=== PATIENT | male | born 1960 | race Caucasian/White ===

== ENCOUNTER 2017-10-12 22:53 | Inpatient (IN) | payer OTHER ==
[2017-10-12] MEDS ORDERED: VANCOMYCIN IV PER PHARMACY 1 EACH MISC MISCELLANE PRN (23:35)
[2017-10-12] MEDS ORDERED: cefTRIAXone IN SWFI 2,000 MG/20 ML SYRINGE IVP STA (23:35)
[2017-10-12] MEDS ORDERED: SODIUM CHLORIDE 0.9% 1,000 ML IV STA (23:35)
--- NOTE | 2017-10-12 23:55 | ED ---
General Adult HPI - General Chief complaint: Extremity Problem,Nontraumatic Stated complaint: Leg Swelling, toe injury Time Seen by Provider: 10/12/17 23:19 Source: patient, family, RN notes reviewed, old records reviewed Mode of arrival: wheelchair Limitations: no limitations - History of Present Illness Initial comments: This is a 48-year-old male to the ER for evaluation of pain. Significant right foot pain right great toe pain with ulcer nonhealing. Drainage. Patient is increased edema swelling and erythema of right lower extremity, fever and chills. Patient's strong history of peripheral arterial disease. No prior amputations. Patient noticed pain symptoms worsening today - Related Data Home Medications Medication Instructions Recorded Confirmed Furosemide [Lasix] 40 mg PO DAILY 02/05/16 10/12/17 Multivitamins, Thera [Multivitamin 1 tab PO DAILY 02/05/16 10/12/17 (formulary)] Atorvastatin [Lipitor] 10 mg PO DAILY 02/19/16 10/12/17 Clopidogrel [Plavix] 75 mg PO DAILY 02/19/16 10/12/17 Cyanocobalamin [Vitamin B-12] 500 mcg PO DAILY 02/19/16 10/12/17 Thiamine [Vitamin B-1] 100 mg PO DAILY 02/19/16 10/12/17 Albuterol Sulfate [Proair Hfa] 2 puff INHALATION RT-Q6H PRN 10/12/17 10/12/17 Aspirin [Adult Low Dose Aspirin EC] 81 mg PO DAILY 10/12/17 10/12/17 Carvedilol [Coreg] 6.25 mg PO BID 10/12/17 10/12/17 Ranitidine HCl 300 mg PO DAILY 10/12/17 10/12/17 Sulfamethox-Tmp 800-160Mg [Bactrim 1 tab PO DAILY 10/12/17 10/12/17 DS 800-160 mg] Previous Rx's Medication Instructions Recorded Nitroglycerin Sl Tabs [Nitrostat] 0.4 mg SUBLINGUAL Q5M PRN #20 tab 02/19/16 Allergies Allergy/AdvReac Type Severity Reaction Status Date / Time morphine Allergy Rash/Hives Verified 10/12/17 23:33 Review of Systems ROS Statement: Those systems with pertinent positive or pertinent negative responses have been documented in the HPI. ROS Other: All systems not noted in ROS Statement are negative. Past Medical History Past Medical History: Chest Pain / Angina, Heart Failure, Hyperlipidemia, Hypertension Additional Past Medical History / Comment(s): Pancreatitis History of Any Multi-Drug Resistant Organisms: None Reported Past Surgical History: Orthopedic Surgery Additional Past Surgical History / Comment(s): 4 stents placed, Rt shoulder Past Anesthesia/Blood Transfusion Reactions: No Reported Reaction Past Psychological History: Depression Smoking Status: Current every day smoker Past Alcohol Use History: None Reported Past Drug Use History: Opiates General Exam - General Exam Comments Initial Comments: Right lower extremity is significantly swollen, edematous, erythematous, warm into foot, pedal edema with right great toe ulcer drainage Limitations: no limitations General appearance: alert, in no apparent distress Head exam: Present: atraumatic, normocephalic, normal inspection Eye exam: Present: normal appearance, PERRL, EOMI. Absent: scleral icterus, conjunctival injection, periorbital swelling ENT exam: Present: normal exam, mucous membranes moist Neck exam: Present: normal inspection. Absent: tenderness, meningismus, lymphadenopathy Respiratory exam: Present: normal lung sounds bilaterally. Absent: respiratory distress, wheezes, rales, rhonchi, stridor Cardiovascular Exam: Present: regular rate, normal rhythm, normal heart sounds. Absent: systolic murmur, diastolic murmur, rubs, gallop, clicks GI/Abdominal exam: Present: soft, normal bowel sounds. Absent: distended, tenderness, guarding, rebound, rigid Extremities exam: Present: normal inspection, full ROM, normal capillary refill. Absent: tenderness, pedal edema, joint swelling, calf tenderness Back exam: Present: normal inspection Neurological exam: Present: alert, oriented X3, CN II-XII intact Psychiatric exam: Present: normal affect, normal mood Skin exam: Present: warm, dry, intact, normal color. Absent: rash Course Vital Signs 10/12/17 23:09 Temperature 98.6 F Pulse Rate 75 Respiratory 20 Rate Blood Pressure 126/85 O2 Sat by Pulse 99 Oximetry Medical Decision Making - Medical Decision Making 56 male the ER for evaluation, patient's inferiorly for evaluation regards to right foot pain right leg pain and swelling. Patient does have significant cellulitis of right lower extremity with significant pedal edema and ulcer of right great toe will admit for IV antibiotics and will control - Radiology Data Radiology results: report reviewed (X-ray right foot negative), image reviewed Disposition Clinical Impression: Neuropathy, Foot pain, Cellulitis of right lower extremity, Ulcer of right great toe due to diabetes mellitus Disposition: ADMITTED IP TO THIS HOSP Condition: Fair Is patient prescribed a controlled substance at d/c from ED?: No Referrals: Nonstaff,Physician [Primary Care Provider] - 1-2 days
[2017-10-13] MEDS ORDERED: VANCOMYCIN 1,250 MG in SODIUM CHLORIDE 0.9% 250 ML IVPB ONE ×2
[2017-10-13 00:26] LABS: Basophils % (A) 0 %; Eosinophils # (A) 0.2 k/uL (0-0.7); Eosinophils % (A) 2 %; HCT 31.4 % (39.0-53.0); HGB 9.9 gm/dL (13.0-17.5); Lymphocytes # (A) 2.6 k/uL (1.0-4.8); Lymphocytes % (A) 27 %; MCHC 31.6 g/dL (31.0-37.0); MCV 94.7 fL (80.0-100.0); Mean Platelet Volume 7.3; Monocytes # (A) 0.6 k/uL (0-1.0); Monocytes % (A) 6 %; Neutrophils # (A) 6.1 k/uL (1.3-7.7); Neutrophils % (A) 62 %; Platelet Count 158 k/uL (150-450); RBC 3.31 m/uL (4.30-5.90); RDW 14.3 % (11.5-15.5); WBC 9.7 k/uL (3.8-10.6)
[2017-10-13 00:30] LABS: Albumin 3.3 g/dL (3.5-5.0); Calcium 9.1 mg/dL (8.4-10.2); Magnesium 1.2 mg/dL (1.6-2.3); Phosphorus 5.2 mg/dL (2.5-4.5); Total Bilirubin 0.2 mg/dL (0.2-1.3)
--- NOTE | 2017-10-13 00:50 | XR ---
EXAMINATION TYPE: XR foot complete RT DATE OF EXAM: 10/13/2017 COMPARISON: 02/05/2016 HISTORY: Swelling TECHNIQUE: 3 views FINDINGS: The metatarsals are intact. I see no fracture nor dislocation. There is some flexion deform ity at the IP joint of the big toe. There are no erosions. IMPRESSION: No acute abnormality of the right foot.
[2017-10-13 00:52] LABS: Appearance,Urine Clear (Clear); Bilirubin,Urine Negative (Negative); Blood,Urine Negative (Negative); Color,Urine Light Yellow; Glucose,Urine (UA) Negative (Negative); Ketones,Urine Negative (Negative); Leukocyte Esterase,Urine Negative (Negative); Nitrite,Urine Negative (Negative); Protein,Urine Negative (Negative); Urobilinogen,Urine <2.0 mg/dL (<2.0)
[2017-10-13 00:53] LABS: Partial Thromboplastin Time 24.7 sec (22.0-30.0); Prothrombin Time 10.1 sec (9.0-12.0)
[2017-10-13 03:36] VITALS: BMI 19.0
[2017-10-13] MEDS: ENOXAPARIN 40 MG/0.4 ML SYRINGE SQ SCH (08:11)
[2017-10-13] MEDS: VANCOMYCIN 1,250 MG in SODIUM CHLORIDE 0.9% 250 ML IVPB SCH (13:04)
[2017-10-13] MEDS: METHADONE 10 MG TAB PO SCH (13:04)
[2017-10-13] MEDS ORDERED: NITROGLYCERIN SL TABS 0.4 MG TAB SUBLINGUAL PRN (15:12)
[2017-10-13] MEDS ORDERED: ALBUTEROL NEBULIZED 2.5 MG/3 ML INHALATION PRN (15:12)
--- NOTE | 2017-10-13 15:15 | P.HPIM ---
History of Present Illness This is a pleasant 56 years old male with past medical history of CHF, hyperlipidemia, hypertension, pancreatitis, chest pain, CAD, status post stent placement, opiate addiction who was at [facility] for alcohol abuse treatment. This time he presents with leg swelling and right toe pain and discharge as per patient this leg was swelling on the right side yesterday but is down today, is also complaining of from pain tenderness and discharge from his right toe over 2 days. Patient denies fever, no chest pain no dyspnea, no orthopnea, no paroxysmal nocturnal dyspnea, in urine or bowel habits Review of Systems REVIEW OF SYSTEMS: CONSTITUTIONAL: No fever, no malaise, no fatigue. HEENT: No recent visual problems or hearing problems. Denied any sore throat. CARDIOVASCULAR: No orthopnea, PND, no palpitations, no syncope. PULMONARY: No shortness of breath, no cough, no hemoptysis. GASTROINTESTINAL: No diarrhea, no nausea, no vomiting, no abdominal pain. Normoactive bowel sounds. NEUROLOGICAL: No headaches, no weakness, no numbness. HEMATOLOGICAL: Denies any bleeding or petechiae. GENITOURINARY: Denies any burning micturition, frequency, or urgency. MUSCULOSKELETAL/RHEUMATOLOGICAL: Denies any joint pain, swelling, or any muscle pain. ENDOCRINE: Denies any polyuria or polydipsia. Past Medical History Past Medical History: Chest Pain / Angina, Heart Failure, Hyperlipidemia, Hypertension Additional Past Medical History / Comment(s): Pancreatitis History of Any Multi-Drug Resistant Organisms: None Reported Past Surgical History: Orthopedic Surgery Additional Past Surgical History / Comment(s): 4 stents placed heart, Rt shoulder Past Anesthesia/Blood Transfusion Reactions: No Reported Reaction Past Psychological History: Depression Smoking Status: Current every day smoker Past Alcohol Use History: None Reported Additional Past Alcohol Use History / Comment(s): At [facility] for ETOH rehab. Past Drug Use History: Opiates Additional Drug Use History / Comment(s): Currently at [facility] rehab. - Past Family History Mother Family Medical History: No Reported History Father Additional Family Medical History / Comment(s): Heart disease and lukemina Medications and Allergies Home Medications Medication Instructions Recorded Confirmed Type Furosemide [Lasix] 40 mg PO DAILY 02/05/16 10/12/17 History Multivitamins, Thera [Multivitamin 1 tab PO DAILY 02/05/16 10/12/17 History (formulary)] Atorvastatin [Lipitor] 10 mg PO DAILY 02/19/16 10/12/17 History Clopidogrel [Plavix] 75 mg PO DAILY 02/19/16 10/12/17 History Cyanocobalamin [Vitamin B-12] 500 mcg PO DAILY 02/19/16 10/12/17 History Nitroglycerin Sl Tabs [Nitrostat] 0.4 mg SUBLINGUAL Q5M PRN #20 tab 02/19/16 Rx Thiamine [Vitamin B-1] 100 mg PO DAILY 02/19/16 10/12/17 History Albuterol Sulfate [Proair Hfa] 2 puff INHALATION RT-Q6H PRN 10/12/17 10/12/17 History Aspirin [Adult Low Dose Aspirin EC] 81 mg PO DAILY 10/12/17 10/12/17 History Carvedilol [Coreg] 6.25 mg PO BID 10/12/17 10/12/17 History Ranitidine HCl 300 mg PO DAILY 10/12/17 10/12/17 History Sulfamethox-Tmp 800-160Mg [Bactrim 1 tab PO DAILY 10/12/17 10/12/17 History DS 800-160 mg] Methadone [Dolophine] 140 mg PO DAILY 10/13/17 10/13/17 History Allergies Allergy/AdvReac Type Severity Reaction Status Date / Time morphine Allergy Rash/Hives Verified 10/12/17 23:33 Physical Exam Vitals: Vital Signs Temp Pulse Pulse Resp BP BP BP 10/13/17 13:30 98.5 F 91 15 153/91 10/13/17 08:10 98.6 F 76 20 146/84 10/13/17 03:16 97.6 F 81 20 166/89 10/13/17 02:51 98.5 F 84 16 160/70 10/13/17 02:00 98.4 F 77 16 156/86 10/13/17 01:16 20 10/13/17 01:05 80 18 160/78 10/12/17 23:09 98.6 F 75 20 126/85 Pulse Ox 10/13/17 13:30 99 10/13/17 08:10 97 10/13/17 03:16 96 10/13/17 02:51 98 10/13/17 02:00 94 L 10/13/17 01:16 10/13/17 01:05 97 10/12/17 23:09 99 Intake and Output 10/12/17 10/13/17 10/13/17 22:59 06:59 14:59 Intake Total 660 Output Total 1050 300 Balance -390 -300 Intake: Intake, IV Titration 300 Amount Sodium Chloride 0.9% 1, 300 000 ml @ 100 mls/hr IV . Q10H STA Rx#:[id number] Oral 360 Output: Urine 1050 300 Other: Weight 63.503 kg 63.503 kg GENERAL: The patient is alert and oriented x3, not in any acute distress. Well developed, well nourished. HEENT: Pupils are round and equally reacting to light. EOMI. No scleral icterus. No conjunctival pallor. Normocephalic, atraumatic. No pharyngeal erythema. No thyromegaly. CARDIOVASCULAR: S1 and S2 present. No murmurs, rubs, or gallops. PULMONARY: Chest is clear to auscultation, no wheezing or crackles. ABDOMEN: Soft, nontender, nondistended, normoactive bowel sounds. No palpable organomegaly. MUSCULOSKELETAL: No joint swelling or deformity. EXTREMITIES: No cyanosis, clubbing, or pedal edema. -There are some apparent chronic changes on the big toe NEUROLOGICAL: Gross neurological examination did not reveal any focal deficits. SKIN: No rashes. Results CBC & Chem 7: 10/13/17 00:11 10/13/17 00:11 Labs: Abnormal Lab Results - Last 24 Hours (Table) 10/13/17 10/13/17 Range/Units 00:11 00:11 RBC 3.31 L (4.30-5.90) m/uL Hgb 9.9 L (13.0-17.5) gm/dL Hct 31.4 L (39.0-53.0) % Chloride 94 L (98-107) mmol/L Carbon Dioxide 35 H (22-30) mmol/L BUN 24 H (9-20) mg/dL Phosphorus 5.2 H (2.5-4.5) mg/dL Magnesium 1.2 L (1.6-2.3) mg/dL Albumin 3.3 L (3.5-5.0) g/dL Microbiology - Last 24 Hours (Table) 10/13/17 00:43 Urine Culture - Preliminary Urine,Voided Thrombosis Risk Factor Assmnt - Choose All That Apply Each Factor Represents 1 point: Age 41-60 years, Medical pt on bed rest, Swollen legs (current) Other Risk Factors: No Other congenital or acquired thrombophilia - If yes, enter type in comment: No Thrombosis Risk Factor Assessment Total Risk Factor Score: 3 Thrombosis Risk Factor Assessment Level: Moderate Risk Assessment and Plan Plan: -Right foot big toe pain and possible infection, patient is currently on Bactrim. ID consult. We'll check x-ray of the right foods, and venous Doppler to rule out DVT -History of CAD, continue on the Plavix and aspirin -Hypertension continue on Coreg and Lasix -Hyperlipidemia continue with statin
--- NOTE | 2017-10-13 15:34 | XR ---
EXAMINATION TYPE: XR foot complete RT DATE OF EXAM: 10/13/2017 CLINICAL HISTORY: Ulcer on right great toe TECHNIQUE: Frontal, lateral and oblique images of the right foot are obtained. COMPARISON: None. FINDINGS: There is no acute fracture/dislocation evident. Soft tissue ulcerations noted. There is il l-defined bony demineralization of the subungual tuft of the great toe. Early osteomyelitis is diffic ult to exclude. Correlate clinically and with appropriate workup. The joint spaces appear within nor mal limits. IMPRESSION: There is no acute fracture or dislocation. Early osteomyelitis of subungual tuft difficult to exclude . Correlate clinically. ICD 10 NO FRACTURE, INITIAL EVALUATION
--- NOTE | 2017-10-13 16:21 | US ---
EXAMINATION TYPE: US venous doppler duplex LE BI DATE OF EXAM: 10/13/2017 4:05 PM COMPARISON: NONE CLINICAL HISTORY: edema. bilateral leg swelling, CHF, no h/o dvt SIDE PERFORMED: Bilateral TECHNIQUE: The lower extremity deep venous system is examined utilizing real time linear array sonog daksha with graded compression, doppler sonography and color-flow sonography. VESSELS IMAGED: External Iliac Vein (EIV) Common Femoral Vein Deep Femoral Vein Greater Saphenous Vein * Femoral Vein Popliteal Vein Small Saphenous Vein * Proximal Calf Veins (* superficial vessels) Grayscale, color doppler, spectral doppler imaging performed of the deep veins of the lower extremiti es. There is normal flow, compressibility, vascular waveforms. Right Leg: Appears negative for DVT, 5.9cm popiteal fossa complex cyst seem Left Leg: Appears negative for dvt, duplicate mid fv seen IMPRESSION: No evidence for DVT.
[2017-10-13] MEDS: ASPIRIN 81 MG PO SCH (16:45)
[2017-10-13] MEDS: CYANOCOBALAMIN 500 MCG TAB PO SCH (16:46)
[2017-10-13] MEDS: ATORVASTATIN 10 MG TAB PO SCH (16:46)
[2017-10-13] MEDS: CLOPIDOGREL 75 MG TAB PO SCH (16:46)
[2017-10-13] MEDS: FAMOTIDINE 20 MG TAB PO SCH (16:46)
[2017-10-13] MEDS: THIAMINE 100 MG TAB PO SCH (16:47)
[2017-10-13] MEDS: FUROSEMIDE 40 MG TAB PO SCH (16:47)
[2017-10-13] MEDS: MULTIVITAMINS, THERA 1 EACH TAB PO SCH (16:47)
[2017-10-13] MEDS: CARVEDILOL 6.25 MG TAB PO SCH (16:47)
[2017-10-13] MEDS: SODIUM CHLORIDE 0.9% 1,000 ML IV SCH (22:49)
[2017-10-14] MEDS: VANCOMYCIN 1,250 MG in SODIUM CHLORIDE 0.9% 250 ML IVPB SCH ×3 (00:05→23:05)
[2017-10-14] MEDS: ACETAMINOPHEN TAB 325 MG TAB PO PRN ×3 (02:19→20:19)
[2017-10-14 07:13] LABS: Basophils % (A) 0 %; Eosinophils # (A) 0.2 k/uL (0-0.7); Eosinophils % (A) 3 %; HCT 30.4 % (39.0-53.0); HGB 9.7 gm/dL (13.0-17.5); Lymphocytes # (A) 2.1 k/uL (1.0-4.8); Lymphocytes % (A) 29 %; MCH 29.9 pg (25.0-35.0); MCV 93.5 fL (80.0-100.0); Mean Platelet Volume 6.8; Monocytes # (A) 0.5 k/uL (0-1.0); Monocytes % (A) 7 %; Neutrophils # (A) 4.5 k/uL (1.3-7.7); Neutrophils % (A) 60 %; Platelet Count 150 k/uL (150-450); RBC 3.26 m/uL (4.30-5.90); RDW 13.9 % (11.5-15.5); WBC 7.4 k/uL (3.8-10.6)
[2017-10-14 07:23] LABS: Calcium 8.9 mg/dL (8.4-10.2); Potassium 4.2 mmol/L (3.5-5.1)
[2017-10-14] MEDS: ATORVASTATIN 10 MG TAB PO SCH (08:52)
[2017-10-14] MEDS: CYANOCOBALAMIN 500 MCG TAB PO SCH (08:52)
[2017-10-14] MEDS: METHADONE 10 MG TAB PO SCH (08:52)
[2017-10-14] MEDS: ENOXAPARIN 40 MG/0.4 ML SYRINGE SQ SCH (08:52)
[2017-10-14] MEDS: THIAMINE 100 MG TAB PO SCH (08:52)
[2017-10-14] MEDS: FAMOTIDINE 20 MG TAB PO SCH (08:53)
[2017-10-14] MEDS: CLOPIDOGREL 75 MG TAB PO SCH (08:53)
[2017-10-14] MEDS: ASPIRIN 81 MG PO SCH (08:53)
[2017-10-14] MEDS: FUROSEMIDE 40 MG TAB PO SCH (08:53)
[2017-10-14] MEDS: CARVEDILOL 6.25 MG TAB PO SCH ×2 (08:53→17:25)
[2017-10-14] MEDS: MULTIVITAMINS, THERA 1 EACH TAB PO SCH (11:11)
[2017-10-14] MEDS: ERTAPENEM 1 GM in SODIUM CHLORIDE 0.9% 50 ML IVPB SCH (14:27)
[2017-10-14] MEDS: SODIUM CHLORIDE 0.9% 1,000 ML IV SCH (14:27)
--- NOTE | 2017-10-14 15:06 | P.CONS ---
History of Present Illness - Reason for Consult Consult date: 10/14/17 - Chief Complaint ulcer right great toe - History of Present Illness 56-year-old male that has a known history of multiple medical troubles includes diabetes mellitus type 2, pancreatitis and chronic alcoholism and underlying coronary disease requiring a stent. The patient relates that several months ago he developed an ulceration to his right great toe and because of severe coronary artery disease and multiple medical issues he was not deemed a candidate for any interventions at that time. Apparently local wound care only was given. He was told that he may require surgical intervention almost sounding like an amputation to the site which again he was not well enough for. He has had ongoing difficulties with her chronic alcoholism and although he lives in [place] has come to our community to be admitted to [facility] for his alcohol rehab. Apparently the right foot has markedly worsened with some increasing pain and erythema and some drainage as well as a cellulitis and onset of fever. With this he presented to the emergency center and was admitted for the cellulitis and wound to the right great toe. With his difficulty the infectious diseases consultation was requested Review of Systems HEENT:Denies headache or acute visual change. Denies sinus or mouth discomforts. Denies neck stiffness or pain. Denies significant oral cavity pain. Denies difficulty on swallowing. Lungs: Denies significant shortness of breath, cough, sputum production, or hemoptysis. Cardiovascular: Denies significant shortness of breath, chest pain, chest wall pain, orthopnea, dyspnea on exertion, syncope Gastrointestinal:Denies nausea, vomiting, diarrhea, constipation, hematemesis, melena, hematochezia. No no significant change of bowel habit noticed. Musculoskeletal: As per the HPI has pain swelling and ulceration to the right great toe Skin: Ulcer right great toe for months Neuro: Denies headache or visual change. Denies any new onset weakness or difficulty with ambulation. Denies falls or seizures. Psychiatric:Denies anxiety or depression. Endocrine: Denies significant fatigue, denies significant weight loss or weight gain. Past Medical History Past Medical History: Chest Pain / Angina, Heart Failure, Hyperlipidemia, Hypertension Additional Past Medical History / Comment(s): Pancreatitis History of Any Multi-Drug Resistant Organisms: None Reported Past Surgical History: Orthopedic Surgery Additional Past Surgical History / Comment(s): 4 stents placed heart, Rt shoulder Past Anesthesia/Blood Transfusion Reactions: No Reported Reaction Past Psychological History: Depression Smoking Status: Current every day smoker Past Alcohol Use History: None Reported Additional Past Alcohol Use History / Comment(s): At [facility] for ETOH rehab. Single and lives with his sister. Does not work outside of the home no experience. No international travel. Tobacco use is active. No opiate use but is an alcoholic, relates he's now been more than a week since he was actively drinking. Past Drug Use History: Opiates Additional Drug Use History / Comment(s): Currently at [facility]. - Past Family History Mother Family Medical History: No Reported History Father Additional Family Medical History / Comment(s): Heart disease and lukemina Medications and Allergies Home Medications and Allergies Comment(s): Current Medications Acetaminophen (Tylenol Tab) 650 mg PO Q6HR PRN PRN Reason: Fever and/ or Pain Last Admin: 10/14/17 11:08 Dose: 650 mg Albuterol Sulfate (Ventolin Nebulized) 2.5 mg INHALATION RT-Q6H PRN PRN Reason: Shortness Of Breath Aspirin (Aspirin) 81 mg PO DAILY [facility] Last Admin: 10/14/17 08:53 Dose: 81 mg Atorvastatin Calcium (Lipitor) 10 mg PO DAILY [facility] Last Admin: 10/14/17 08:52 Dose: 10 mg Carvedilol (Coreg) 6.25 mg PO AC-BID [facility] Last Admin: 10/14/17 08:53 Dose: 6.25 mg Clopidogrel Bisulfate (Plavix) 75 mg PO DAILY [facility] Last Admin: 10/14/17 08:53 Dose: 75 mg Cyanocobalamin (Vitamin B-12) 500 mcg PO DAILY [facility] Last Admin: 10/14/17 08:52 Dose: 500 mcg Enoxaparin Sodium (Lovenox) 40 mg SQ DAILY [facility] Last Admin: 10/14/17 08:52 Dose: 40 mg Famotidine (Pepcid) 40 mg PO DAILY [facility] Last Admin: 10/14/17 08:53 Dose: 40 mg Furosemide (Lasix) 40 mg PO DAILY [facility] Last Admin: 10/14/17 08:53 Dose: 40 mg Vancomycin HCl 1,250 mg/ (Sodium Chloride) 250 mls @ 125 mls/hr IVPB Q12H [facility] Last Admin: 10/14/17 11:09 Dose: 125 mls/hr Sodium Chloride (Saline 0.9%) 1,000 mls @ 75 mls/hr IV .[id number] [facility] Last Admin: 10/14/17 14:27 Dose: Not Given Ertapenem 1 gm/ Sodium (Chloride) 50 mls @ 100 mls/hr IVPB Q24HR [facility] Last Admin: 10/14/17 14:27 Dose: 100 mls/hr Methadone HCl (Dolophine) 140 mg PO DAILY [facility] Last Admin: 10/14/17 08:52 Dose: 140 mg Miscellaneous Information (Vancomycin Trough Due) 1 each MISCELLANE ONCE ONE Stop: 10/15/17 11:01 Multivitamins (Theragran) 1 each PO DAILY@1200 [facility] Last Admin: 10/14/17 11:11 Dose: 1 each Nitroglycerin (Nitrostat) 0.4 mg SUBLINGUAL Q5M PRN PRN Reason: Chest Pain Thiamine HCl (Vitamin B-1) 100 mg PO DAILY [facility] Last Admin: 10/14/17 08:52 Dose: 100 mg Home Medications Medication Instructions Recorded Confirmed Type Furosemide [Lasix] 40 mg PO DAILY 02/05/16 10/12/17 History Multivitamins, Thera [Multivitamin 1 tab PO DAILY 02/05/16 10/12/17 History (formulary)] Atorvastatin [Lipitor] 10 mg PO DAILY 02/19/16 10/12/17 History Clopidogrel [Plavix] 75 mg PO DAILY 02/19/16 10/12/17 History Cyanocobalamin [Vitamin B-12] 500 mcg PO DAILY 02/19/16 10/12/17 History Nitroglycerin Sl Tabs [Nitrostat] 0.4 mg SUBLINGUAL Q5M PRN #20 tab 02/19/16 Rx Thiamine [Vitamin B-1] 100 mg PO DAILY 02/19/16 10/12/17 History Albuterol Sulfate [Proair Hfa] 2 puff INHALATION RT-Q6H PRN 10/12/17 10/12/17 History Aspirin [Adult Low Dose Aspirin EC] 81 mg PO DAILY 10/12/17 10/12/17 History Carvedilol [Coreg] 6.25 mg PO BID 10/12/17 10/12/17 History Ranitidine HCl 300 mg PO DAILY 10/12/17 10/12/17 History Sulfamethox-Tmp 800-160Mg [Bactrim 1 tab PO DAILY 10/12/17 10/12/17 History DS 800-160 mg] Methadone [Dolophine] 140 mg PO DAILY 10/13/17 10/13/17 History Allergies Allergy/AdvReac Type Severity Reaction Status Date / Time morphine Allergy Rash/Hives Verified 10/12/17 23:33 Physical Exam Vitals: Vital Signs Temp Pulse Resp BP Pulse Ox 10/14/17 14:32 98.0 F 76 16 120/74 97 10/14/17 07:00 97.8 F 76 15 147/87 96 10/14/17 02:20 98.8 F 78 16 147/89 94 L 10/13/17 19:52 97.4 F L 73 16 154/84 96 10/13/17 16:15 98.0 F 85 16 156/93 Intake and Output 10/13/17 10/14/17 10/14/17 22:59 06:59 14:59 Intake Total 2317 1240 Output Total 1810 250 550 Balance 507 990 -550 Intake: Intake, IV Titration 1000 700 Amount Sodium Chloride 0.9% 1, 1000 000 ml @ 100 mls/hr IV . Q10H [facility] Rx#:[id number] Sodium Chloride 0.9% 1, 450 000 ml @ 75 mls/hr IV . [id number] [facility] Rx#:[id number] Vancomycin 1,250 mg In 250 Sodium Chloride 0.9% 250 ml @ 125 mls/hr IVPB Q12H [facility] Rx#:[id number] Oral 1317 540 Output: Urine 1810 250 550 Other: Voiding Method Toilet Toilet Urinal Urinal # Voids 3 1 3 # Bowel Movements 1 # Emeses 0 56-year-old male who looks older than his stated age HEENT: Anicteric conjunctiva are pink and moist nasal mucosa grossly intact without significant lesions, there is no thrush. Dentition is poor Neck: The neck is supple without significant lymphadenopathy or thyromegaly. Lungs: Symmetrical air entry is noted. Expiratory wheezes are scattered but no uriel bronchial sounds are heard no dullness or egophony Heart: Regular rate and rhythm with an audible S1-S2, no S3 no S4. There is no significant murmur click or rub, PMI was nondisplaced. Abdomen: Positive bowel sounds soft and nontender without palpable masses or organomegaly. There was no guarding or rebound. Extremities: The upper extremities have excellent pulses they are symmetric, no significant petechiae or telangiectasia. No splinter hemorrhages were noted. The lower extremities reveal evidence of some trace edema. Left foot is without acute abnormalities except for his oncotic toenails The right foot shows evidence of the deformity to the great toe with evidence of the distal ulceration. There is no expressible purulence at the ulceration which measures at 0.5 x 0.7 x 0.2cm has some granulation at its base Neuro: Awake alert oriented to person place and time. There are no acute new gross focal sensory motor deficits. Results CBC & Chem 7: 10/14/17 06:26 10/14/17 06: Labs: Abnormal Lab Results - Last 24 Hours (Table) 10/14/17 10/14/17 Range/Units : 06: RBC 3.26 L (4.30-5.90) m/uL Hgb 9.7 L (13.0-17.5) gm/dL Hct 30.4 L (39.0-53.0) % Sodium 136 L (137-145) mmol/L Chloride 94 L (98-107) mmol/L Carbon Dioxide 34 H (22-30) mmol/L Microbiology - Last 24 Hours (Table) 10/13/17 00:43 Urine Culture - Final Urine,Voided 10/13/17 00:11 Blood Culture - Preliminary Blood No Growth after 24 hours Laboratory Results WBC 7.4 k/uL (3.8-10.6) 10/14/17: RBC 3.26 m/uL (4.30-5.90) L 10/14/17: Hgb 9.7 gm/dL (13.0-17.5) L 10/14/17: Hct 30.4 % (39.0-53.0) L 10/14/17: MCV 93.5 fL (80.0-100.0) 10/14/17: MCH 29.9 pg (25.0-35.0) 10/14/17: MCHC 32.0 g/dL (31.0-37.0) 10/14/17 RDW 13.9 % (11.5-15.5) 10/14/17 06:26 Plt Count 150 k/uL (150-450) 10/14/17 06:26 Neutrophils % 60 % 10/14/17 06:26 Lymphocytes % 29 % 10/14/17 06:26 Monocytes % 7 % 10/14/17 06:26 Eosinophils % 3 % 10/14/17 06:26 Basophils % 0 % 10/14/17 06:26 Neutrophils # 4.5 k/uL (1.3-7.7) 10/14/17 06:26 Lymphocytes # 2.1 k/uL (1.0-4.8) 10/14/17 06:26 Monocytes # 0.5 k/uL (0-1.0) 10/14/17 06:26 Eosinophils # 0.2 k/uL (0-0.7) 10/14/17 06:26 Basophils # 0.0 k/uL (0-0.2) 10/14/17 06:26 PT 10.1 sec (9.0-12.0) 10/13/17 00:11 INR 1.0 (<1.2) 10/13/17 00:11 APTT 24.7 sec (22.0-30.0) 10/13/17 00:11 Sodium 136 mmol/L (137-145) L 10/14/17 06:26 Potassium 4.2 mmol/L (3.5-5.1) 10/14/17 06:26 Chloride 94 mmol/L (98-107) L 10/14/17 06:26 Carbon Dioxide 34 mmol/L (22-30) H 10/14/17 06:26 Anion Gap 8 mmol/L 10/14/17 06:26 BUN 20 mg/dL (9-20) 10/14/17 06:26 Creatinine 1.14 mg/dL (0.66-1.25) 10/14/17 06:26 Est GFR (CKD-EPI)AfAm 82 (>60 ml/min/1.73 sqM) 10/14/17 06:26 Est GFR (CKD-EPI)NonAf 71 (>60 ml/min/1.73 sqM) 10/14/17 06:26 Glucose 90 mg/dL (74-99) 10/14/17 06:26 Calcium 8.9 mg/dL (8.4-10.2) 10/14/17 06:26 Phosphorus 5.2 mg/dL (2.5-4.5) H 10/13/17 00:11 Magnesium 1.2 mg/dL (1.6-2.3) L 10/13/17 00:11 Total Bilirubin 0.2 mg/dL (0.2-1.3) 10/13/17 00:11 AST 30 U/L (17-59) 10/13/17 00:11 ALT 32 U/L (21-72) 10/13/17 00:11 Alkaline Phosphatase 89 U/L (38-126) 10/13/17 00:11 Total Protein 7.0 g/dL (6.3-8.2) 10/13/17 00:11 Albumin 3.3 g/dL (3.5-5.0) L 10/13/17 00:11 Urine Color Light Yellow 10/13/17 00:45 Urine Appearance Clear (Clear) 10/13/17 00:45 Urine pH 7.0 (5.0-8.0) 10/13/17 00:45 Ur Specific [place] 1.010 (1.001-1.035) 10/13/17 00:45 Urine Protein Negative (Negative) 10/13/17 00:45 Urine Glucose (UA) Negative (Negative) 10/13/17 00:45 Urine Ketones Negative (Negative) 10/13/17 00:45 Urine Blood Negative (Negative) 10/13/17 00:45 Urine Nitrite Negative (Negative) 10/13/17 00:45 Urine Bilirubin Negative (Negative) 10/13/17 00:45 Urine Urobilinogen <2.0 mg/dL (<2.0) 10/13/17 00:45 Ur Leukocyte Esterase Negative (Negative) 10/13/17 00:45 Microbiology 10/13/17 00:43 Urine,Voided Urine Culture - Final 10/13/17 00:11 Blood Blood Culture - Preliminary No Growth after 24 hours Assessment and Plan (1) Cellulitis of right foot Current Visit: No Status: Acute Code(s): L03.115 - CELLULITIS OF RIGHT LOWER LIMB SNOMED Code(s): 119623151 (2) Chronic ulcer of right great toe with fat layer exposed Narrative/Plan: 56-year-old male with history of multiple medical troubles has a nonhealing ulceration to the right great toe that is likely complication of his peripheral vascular disease, his alcoholism and poor overall status. X-ray of the site was of concern and constantly bone scan has been requested to verify the possibility of underlying osteomyelitis. If I cellulitis is found cultures may further help direct her course of antibiotic therapy. He is an alcoholic and opiate user and may require outpatient intravenous antibiotic therapy. He relates that since he is from the [facility] would likely be cared for in that setting after his discharge from hospital, rather than going back to [facility]. Local wound care with julia has been requested Elevation the foot at rest Would like to have him follow-up in our wound healing center after discharge from going care which may be difficult if he moves out of the community We do well to have some kind of offloading shoe to the right foot which usually is ordered in the outpatient setting. Albumin is low as expected with chronic alcoholism is evidence of moderate protein calorie malnutrition and multivitamin supplements are requested Current Visit: Yes Status: Acute Code(s): L97.512 - NON-PRS CHRONIC ULCER OTH PRT RIGHT FOOT W FAT LAYER EXPOSED SNOMED Code(s): 386638942
--- NOTE | 2017-10-14 17:36 | NM ---
EXAMINATION TYPE: NM bone 3 phase DATE OF EXAM: 10/14/2017 COMPARISON: NONE HISTORY: Triple phase bone scintigraphy was performed following the injection of 22.2 mCi Tc 99m MDP. Immedia te images and 4 hours post injection images acquired. FINDINGS: The flow study shows hyperemia of the right big toe and also in the medial aspect of the left midfoot . Delayed images show persistent increased activity in the right big toe as well as the left midfoot on the medial aspect. Flow study shows generally increased blood flow in the entire right foot compar ed to the left. IMPRESSION: Hyperemia of the right foot compared to the left. This could relate to cellulitis. Delayed increased uptake in the right big toe and left midfoot. The big toe uptake is consistent with osteomyelitis. Up take in the left midfoot is typical of osteoarthritis or fracture.
--- NOTE | 2017-10-14 18:48 | P.PN ---
Subjective This is a pleasant 56 years old male with past medical history of CHF, hyperlipidemia, hypertension, pancreatitis, chest pain, CAD, status post stent placement, opiate addiction who was at [facility] for alcohol abuse treatment. This time he presents with leg swelling and right toe pain and discharge as per patient this leg was swelling on the right side yesterday but is down today, is also complaining of from pain tenderness and discharge from his right toe over 2 days. Patient denies fever, no chest pain no dyspnea, no orthopnea, no paroxysmal nocturnal dyspnea, in urine or bowel habits On 10/14/2017 Patient is still complaining from pain and swelling of his right toe, patient denies chest pain no fever, with varus of Vitas looks stable. Labs shows no leukocytosis. Sodium 136, potassium 4.2. Creatinine normal at 1.14, patient still on vancomycin. Patient is on IV fluids for dehydration Objective - Vital Signs Vital signs: Vital Signs Temp 98.0 F 10/14/17 14:32 Pulse 79 10/14/17 17:24 Resp 16 10/14/17 14:32 BP 134/79 10/14/17 17:24 Pulse Ox 97 10/14/17 14:32 Intake & Output 10/13/17 10/14/17 10/14/17 18:59 06:59 18:59 Intake Total 1087 3320 237 Output Total 900 2060 550 Balance 187 1260 -313 Weight 63.503 kg Intake: Intake, IV Titration 250 1700 Amount Sodium Chloride 0.9% 1, 1000 000 ml @ 100 mls/hr IV . Q10H [facility] Rx#:[id number] Sodium Chloride 0.9% 1, 450 000 ml @ 75 mls/hr IV . [id number] [facility] Rx#:[id number] Vancomycin 1,250 mg In 250 250 Sodium Chloride 0.9% 250 ml @ 125 mls/hr IVPB Q12H [facility] Rx#:[id number] Oral 837 1620 237 Output: Urine 900 2060 550 Other: Voiding Method Toilet Urinal Urinal # Voids 1 3 # Bowel Movements 1 # Emeses 0 - Exam GENERAL: The patient is alert and oriented x3, not in any acute distress. Well developed, well nourished. - HEENT: Pupils are round and equally reacting to light. EOMI. No scleral icterus. No conjunctival pallor. Normocephalic, atraumatic. No pharyngeal erythema. No thyromegaly. Dry mucous membranes CARDIOVASCULAR: S1 and S2 present. No murmurs, rubs, or gallops. PULMONARY: Chest is clear to auscultation, no wheezing or crackles. ABDOMEN: Soft, nontender, nondistended, normoactive bowel sounds. No palpable organomegaly. MUSCULOSKELETAL: No joint swelling or deformity. EXTREMITIES: No cyanosis, clubbing, or pedal edema. -There are some apparent chronic changes on the big toe NEUROLOGICAL: Gross neurological examination did not reveal any focal deficits. SKIN: No rashes. - Labs CBC & Chem 7: 10/14/17 06:26 10/14/17 06:26 Labs: Abnormal Lab Results - Last 24 Hours (Table) 10/14/17 10/14/17 Range/Units 06:26 06:26 RBC 3.26 L (4.30-5.90) m/uL Hgb 9.7 L (13.0-17.5) gm/dL Hct 30.4 L (39.0-53.0) % Sodium 136 L (137-145) mmol/L Chloride 94 L (98-107) mmol/L Carbon Dioxide 34 H (22-30) mmol/L Microbiology - Last 24 Hours (Table) 10/13/17 00:43 Urine Culture - Final Urine,Voided 10/13/17 00:11 Blood Culture - Preliminary Blood No Growth after 24 hours Assessment and Plan Plan: -Right foot big toe pain and possible infection, patient is currently on Bactrim. ID consult is appreciated and the recommendation are noted. check x-ray of the right foot: Possible early OM, and venous Doppler was negative for DVT, bone scan is ordered and is pending. Continue with vancomycin and IV fluids -Complex right popliteal cyst, follow-up as an outpatient -History of CAD, continue on the Plavix and aspirin -Hypertension continue on Coreg and Lasix -Hyperlipidemia continue with statin DVT prophylaxis of Lovenox GI prophylaxis on Pepcid Prognosis is guarded
[2017-10-15] MEDS: SODIUM CHLORIDE 0.9% 1,000 ML IV SCH ×2 (04:08→15:58)
[2017-10-15 07:20] LABS: Basophils % (A) 1 %; Eosinophils # (A) 0.2 k/uL (0-0.7); Eosinophils % (A) 3 %; HCT 29.2 % (39.0-53.0); HGB 9.5 gm/dL (13.0-17.5); Lymphocytes # (A) 2.2 k/uL (1.0-4.8); Lymphocytes % (A) 33 %; MCH 30.6 pg (25.0-35.0); MCHC 32.5 g/dL (31.0-37.0); MCV 94.1 fL (80.0-100.0); Mean Platelet Volume 6.7; Monocytes # (A) 0.5 k/uL (0-1.0); Monocytes % (A) 7 %; Neutrophils # (A) 3.5 k/uL (1.3-7.7); Neutrophils % (A) 54 %; Platelet Count 165 k/uL (150-450); RBC 3.11 m/uL (4.30-5.90); RDW 14.1 % (11.5-15.5); WBC 6.5 k/uL (3.8-10.6)
[2017-10-15 07:47] LABS: Potassium 4.5 mmol/L (3.5-5.1)
[2017-10-15] MEDS: ERTAPENEM 1 GM in SODIUM CHLORIDE 0.9% 50 ML IVPB SCH (09:19)
[2017-10-15] MEDS: ENOXAPARIN 40 MG/0.4 ML SYRINGE SQ SCH (09:20)
[2017-10-15] MEDS: CYANOCOBALAMIN 500 MCG TAB PO SCH (09:20)
[2017-10-15] MEDS: ATORVASTATIN 10 MG TAB PO SCH (09:20)
[2017-10-15] MEDS: FAMOTIDINE 20 MG TAB PO SCH (09:20)
[2017-10-15] MEDS: THIAMINE 100 MG TAB PO SCH (09:21)
[2017-10-15] MEDS: CARVEDILOL 6.25 MG TAB PO SCH ×2 (09:21→17:49)
[2017-10-15] MEDS: CLOPIDOGREL 75 MG TAB PO SCH (09:21)
[2017-10-15] MEDS: ACETAMINOPHEN TAB 325 MG TAB PO PRN ×2 (09:21→17:51)
[2017-10-15] MEDS: ASPIRIN 81 MG PO SCH (09:21)
[2017-10-15] MEDS: FUROSEMIDE 40 MG TAB PO SCH (09:21)
[2017-10-15] MEDS: METHADONE 10 MG TAB PO SCH (09:22)
--- NOTE | 2017-10-15 10:06 | CONS ---
CONSULTATION This is a 57-year-old gentleman who has been admitted to [facility] with history of chronic wound to the right foot big toe plantar aspect. According to the patient, he stepped on a nail on and he was treated at a [facility] in [place] by his waitangi tribunal member and he was not a candidate for any surgical intervention because of his coronary artery disease. The patient is residing in the facility for chronic alcoholism treatment. The patient also had a bilateral vascular intervention most likely, according to the patient, they put a stent in his iliac artery at [facility] in the past. EXAMINATION: Patient was seen in his room. NECK: Supple. Trachea central. CHEST: Clear to auscultation. ABDOMEN: Soft. EXTREMITIES: Brachial radial pulses are palpable. Femorals are palpable. Both popliteals palpable. The right side posterior dorsalis pedis not palpable. Right foot big toe has a small ulcer. No drainage or redness noted. The patient was seen by infectious disease. Patient is on antibiotic and there is a concern about the osteomyelitis. At this point, the patient will be taken care of by Infectious Disease for a local wound care and IV antibiotic. If the patient needs surgical intervention, we will intervene. Follow with you. Thank you very much for this consultation. MMODL / IJN: [id number] /
[2017-10-15] MEDS ORDERED: VANCOMYCIN TROUGH DUE 1 EACH MISC MISCELLANE ONE (11:00)
[2017-10-15] MEDS: MULTIVITAMINS, THERA 1 EACH TAB PO SCH (12:52)
[2017-10-15] MEDS: NICOTINE 14MG/24HR PATCH TRANSDERM SCH (17:49)
[2017-10-15] MEDS: VANCOMYCIN 1,250 MG in SODIUM CHLORIDE 0.9% 250 ML IVPB SCH (21:17)
--- NOTE | 2017-10-15 21:36 | P.PN ---
Subjective This is a pleasant 56 years old male with past medical history of CHF, hyperlipidemia, hypertension, pancreatitis, chest pain, CAD, status post stent placement, opiate addiction who was at [facility] for alcohol abuse treatment. This time he presents with leg swelling and right toe pain and discharge as per patient this leg was swelling on the right side yesterday but is down today, is also complaining of from pain tenderness and discharge from his right toe over 2 days. Patient denies fever, no chest pain no dyspnea, no orthopnea, no paroxysmal nocturnal dyspnea, in urine or bowel habits On 10/14/2017 Patient is still complaining from pain and swelling of his right toe, patient denies chest pain no fever, with varus of Vitas looks stable. Labs shows no leukocytosis. Sodium 136, potassium 4.2. Creatinine normal at 1.14, patient still on vancomycin. Patient is on IV fluids for dehydration Objective - Vital Signs Vital signs: Vital Signs Temp 99.3 F 10/15/17 19:25 Pulse 85 10/15/17 19:25 Resp 16 10/15/17 19:25 BP 108/61 10/15/17 19:36 Pulse Ox 96 10/15/17 19:25 Intake & Output 10/15/17 10/15/17 10/16/17 06:59 18:59 06:59 Intake Total 1600 1025 Output Total 425 Balance 1600 600 Intake: Intake, IV Titration 1200 600 Amount Sodium Chloride 0.9% 1, 1200 600 000 ml @ 75 mls/hr IV . [id number] [facility] Rx#:[id number] Oral 225 Other 400 200 Output: Urine 425 Other: Voiding Method Urinal # Voids 3 2 3 - Exam GENERAL: The patient is alert and oriented x3, not in any acute distress. Well developed, well nourished. - HEENT: Pupils are round and equally reacting to light. EOMI. No scleral icterus. No conjunctival pallor. Normocephalic, atraumatic. No pharyngeal erythema. No thyromegaly. Dry mucous membranes CARDIOVASCULAR: S1 and S2 present. No murmurs, rubs, or gallops. PULMONARY: Chest is clear to auscultation, no wheezing or crackles. ABDOMEN: Soft, nontender, nondistended, normoactive bowel sounds. No palpable organomegaly. MUSCULOSKELETAL: No joint swelling or deformity. EXTREMITIES: No cyanosis, clubbing, or pedal edema. -There are some apparent chronic changes on the big toe NEUROLOGICAL: Gross neurological examination did not reveal any focal deficits. SKIN: No rashes. - Labs CBC & Chem 7: 10/15/17 06:41 10/15/17 06:41 Labs: Abnormal Lab Results - Last 24 Hours (Table) 10/15/17 10/15/17 Range/Units 06:41 06:41 RBC 3.11 L (4.30-5.90) m/uL Hgb 9.5 L (13.0-17.5) gm/dL Hct 29.2 L (39.0-53.0) % Chloride 95 L (98-107) mmol/L Carbon Dioxide 32 H (22-30) mmol/L BUN 22 H (9-20) mg/dL Microbiology - Last 24 Hours (Table) 10/13/17 00:11 Blood Culture - Preliminary Blood No Growth after 48 hours Assessment and Plan Plan: -Right foot big toe pain and possible infection, patient is currently on Bactrim. ID consult is appreciated and the recommendation are noted. check x-ray of the right foot: Possible early OM, and venous Doppler was negative for DVT, bone scan is ordered and is pending. Continue with vancomycin and IV fluids -Complex right popliteal cyst, follow-up as an outpatient -History of CAD, continue on the Plavix and aspirin -Hypertension continue on Coreg and Lasix -Hyperlipidemia continue with statin DVT prophylaxis of Lovenox GI prophylaxis on Pepcid Prognosis is guarded
[2017-10-16] MEDS: SODIUM CHLORIDE 0.9% 1,000 ML IV SCH ×2 (05:37→19:13)
[2017-10-16 06:47] LABS: Basophils % (A) 1 %; Eosinophils # (A) 0.2 k/uL (0-0.7); Eosinophils % (A) 3 %; HCT 30.2 % (39.0-53.0); HGB 9.7 gm/dL (13.0-17.5); Lymphocytes % (A) 29 %; MCH 30.2 pg (25.0-35.0); MCHC 32.1 g/dL (31.0-37.0); MCV 94.3 fL (80.0-100.0); Monocytes # (A) 0.7 k/uL (0-1.0); Monocytes % (A) 9 %; Neutrophils % (A) 57 %; Platelet Count 186 k/uL (150-450); RDW 13.8 % (11.5-15.5); WBC 7.1 k/uL (3.8-10.6)
[2017-10-16 06:58] LABS: Calcium 9.2 mg/dL (8.4-10.2); Potassium 4.3 mmol/L (3.5-5.1)
[2017-10-16] MEDS: ERTAPENEM 1 GM in SODIUM CHLORIDE 0.9% 50 ML IVPB SCH (07:16)
[2017-10-16] MEDS: METHADONE 10 MG TAB PO SCH (07:16)
[2017-10-16] MEDS: CYANOCOBALAMIN 500 MCG TAB PO SCH (07:17)
[2017-10-16] MEDS: ACETAMINOPHEN TAB 325 MG TAB PO PRN ×2 (07:17→14:22)
[2017-10-16] MEDS: FUROSEMIDE 40 MG TAB PO SCH ×2 (07:18→08:39)
[2017-10-16] MEDS: THIAMINE 100 MG TAB PO SCH (07:18)
[2017-10-16] MEDS: ENOXAPARIN 40 MG/0.4 ML SYRINGE SQ SCH (07:18)
[2017-10-16] MEDS: CLOPIDOGREL 75 MG TAB PO SCH (07:18)
[2017-10-16] MEDS: FAMOTIDINE 20 MG TAB PO SCH (07:18)
[2017-10-16] MEDS: ASPIRIN 81 MG PO SCH (07:18)
[2017-10-16] MEDS: NICOTINE 14MG/24HR PATCH TRANSDERM SCH (07:18)
[2017-10-16] MEDS: ATORVASTATIN 10 MG TAB PO SCH (07:18)
[2017-10-16] MEDS: CARVEDILOL 6.25 MG TAB PO SCH ×2 (07:18→16:48)
--- NOTE | 2017-10-16 11:28 | P.PN ---
Subjective This is a pleasant 56 years old male with past medical history of CHF, hyperlipidemia, hypertension, pancreatitis, chest pain, CAD, status post stent placement, opiate addiction who was at [place] for alcohol abuse treatment. This time he presents with leg swelling and right toe pain and discharge as per patient this leg was swelling on the right side yesterday but is down today, is also complaining of from pain tenderness and discharge from his right toe over 2 days. Patient denies fever, no chest pain no dyspnea, no orthopnea, no paroxysmal nocturnal dyspnea, in urine or bowel habits On 10/14/2017 Patient is still complaining from pain and swelling of his right toe, patient denies chest pain no fever, with varus of Vitas looks stable. Labs shows no leukocytosis. Sodium 136, potassium 4.2. Creatinine normal at 1.14, patient still on vancomycin. Patient is on IV fluids for dehydration Objective - Vital Signs Vital signs: Vital Signs Temp 98.8 F 10/16/17 07:08 Pulse 77 10/16/17 08:54 Resp 16 10/16/17 07:08 BP 112/65 10/16/17 07:08 Pulse Ox 94 L 10/16/17 08:43 Intake & Output 10/15/17 10/16/17 10/16/17 18:59 06:59 18:59 Intake Total 1625 Output Total 425 Balance 1200 Weight 63.503 kg Intake: Intake, IV Titration 1200 Amount Sodium Chloride 0.9% 1, 1200 000 ml @ 75 mls/hr IV . [id number] [facility] Rx#:[id number] Oral 225 Other 200 Output: Urine 425 Other: Voiding Method Urinal Urinal # Voids 2 3 # Bowel Movements 1 # Emeses 0 - Exam GENERAL: The patient is alert and oriented x3, not in any acute distress. Well developed, well nourished. - HEENT: Pupils are round and equally reacting to light. EOMI. No scleral icterus. No conjunctival pallor. Normocephalic, atraumatic. No pharyngeal erythema. No thyromegaly. Dry mucous membranes CARDIOVASCULAR: S1 and S2 present. No murmurs, rubs, or gallops. PULMONARY: Chest is clear to auscultation, no wheezing or crackles. ABDOMEN: Soft, nontender, nondistended, normoactive bowel sounds. No palpable organomegaly. MUSCULOSKELETAL: No joint swelling or deformity. EXTREMITIES: No cyanosis, clubbing, or pedal edema. -There are some apparent chronic changes on the big toe NEUROLOGICAL: Gross neurological examination did not reveal any focal deficits. SKIN: No rashes. - Labs CBC & Chem 7: 10/16/17 06:29 10/16/17 06:29 Labs: Abnormal Lab Results - Last 24 Hours (Table) 10/16/17 10/16/17 Range/Units 06:29 06:29 RBC 3.20 L (4.30-5.90) m/uL Hgb 9.7 L (13.0-17.5) gm/dL Hct 30.2 L (39.0-53.0) % Chloride 97 L (98-107) mmol/L BUN 24 H (9-20) mg/dL Microbiology - Last 24 Hours (Table) 10/13/17 00:11 Blood Culture - Preliminary Blood No Growth after 72 hours Assessment and Plan Plan: -Right foot big toe pain and possible infection, patient is currently on Bactrim. ID consult is appreciated and the recommendation are noted. check x-ray of the right foot: Possible early OM, and venous Doppler was negative for DVT, bone scan is ordered and is pending. Continue with vancomycin and IV fluids -Complex right popliteal cyst, follow-up as an outpatient -History of CAD, continue on the Plavix and aspirin -Hypertension continue on Coreg and Lasix -Hyperlipidemia continue with statin DVT prophylaxis of Lovenox GI prophylaxis on Pepcid Prognosis is guarded
[2017-10-16] MEDS: MULTIVITAMINS, THERA 1 EACH TAB PO SCH (11:34)
[2017-10-16] MEDS: VANCOMYCIN 1,250 MG in SODIUM CHLORIDE 0.9% 250 ML IVPB SCH (21:17)
[2017-10-17] MEDS: NICOTINE 14MG/24HR PATCH TRANSDERM SCH (11:24)
[2017-10-17] MEDS: ERTAPENEM 1 GM in SODIUM CHLORIDE 0.9% 50 ML IVPB SCH (11:25)
[2017-10-17] MEDS: ENOXAPARIN 40 MG/0.4 ML SYRINGE SQ SCH (11:26)
[2017-10-17] MEDS: CARVEDILOL 6.25 MG TAB PO SCH ×2 (11:26→18:23)
[2017-10-17] MEDS: FAMOTIDINE 20 MG TAB PO SCH (11:26)
[2017-10-17] MEDS: ASPIRIN 81 MG PO SCH (11:27)
[2017-10-17] MEDS: FUROSEMIDE 40 MG TAB PO SCH (11:27)
[2017-10-17] MEDS: CLOPIDOGREL 75 MG TAB PO SCH (11:27)
[2017-10-17] MEDS: ATORVASTATIN 10 MG TAB PO SCH (11:27)
[2017-10-17] MEDS: THIAMINE 100 MG TAB PO SCH (11:27)
[2017-10-17] MEDS: MULTIVITAMINS, THERA 1 EACH TAB PO SCH (11:27)
[2017-10-17] MEDS: CYANOCOBALAMIN 500 MCG TAB PO SCH (11:27)
[2017-10-17] MEDS: METHADONE 10 MG TAB PO SCH (11:38)
[2017-10-17] MEDS: SODIUM CHLORIDE 0.9% 1,000 ML IV SCH ×2 (12:38→21:58)
[2017-10-17] MEDS: VANCOMYCIN 1,250 MG in SODIUM CHLORIDE 0.9% 250 ML IVPB SCH (21:58)
[2017-10-17] MEDS: ACETAMINOPHEN TAB 325 MG TAB PO PRN (22:02)
--- NOTE | 2017-10-18 00:33 | P.PN ---
Subjective This is a pleasant 56 years old male with past medical history of CHF, hyperlipidemia, hypertension, pancreatitis, chest pain, CAD, status post stent placement, opiate addiction who was at [place] for alcohol abuse treatment. This time he presents with leg swelling and right toe pain and discharge as per patient this leg was swelling on the right side yesterday but is down today, is also complaining of from pain tenderness and discharge from his right toe over 2 days. Patient denies fever, no chest pain no dyspnea, no orthopnea, no paroxysmal nocturnal dyspnea, in urine or bowel habits On 10/17/2017 Patient is still complaining from pain and swelling of his right toe,however it is improving as per pt. patient denies chest pain no fever, with rest of Vitas looks stable. Labs shows no leukocytosis. labs are reviewed, patient still on vancomycin and invanz. Patient is on IV fluids for dehydration Objective - Vital Signs Vital signs: Vital Signs Temp 98.4 F 10/17/17 14:51 Pulse 86 10/17/17 14:51 Resp 17 10/17/17 14:51 BP 107/72 10/17/17 14:51 Pulse Ox 97 10/17/17 14:51 Intake & Output 10/17/17 10/17/17 10/18/17 06:59 18:59 06:59 Intake Total 1400 833 Balance 1400 833 Intake: Intake, IV Titration 1200 215 Amount Ertapenem 1 gm In Sodium 50 Chloride 0.9% 50 ml @ 100 mls/hr IVPB Q24HR [facility] Rx #:[id number] Sodium Chloride 0.9% 1, 1200 165 000 ml @ 75 mls/hr IV . [id number] [facility] Rx#:[id number] Oral 618 Other 200 Other: # Voids 3 - Exam GENERAL: The patient is alert and oriented x3, not in any acute distress. Well developed, well nourished. - HEENT: Pupils are round and equally reacting to light. EOMI. No scleral icterus. No conjunctival pallor. Normocephalic, atraumatic. No pharyngeal erythema. No thyromegaly. Dry mucous membranes CARDIOVASCULAR: S1 and S2 present. No murmurs, rubs, or gallops. PULMONARY: Chest is clear to auscultation, no wheezing or crackles. ABDOMEN: Soft, nontender, nondistended, normoactive bowel sounds. No palpable organomegaly. MUSCULOSKELETAL: No joint swelling or deformity. EXTREMITIES: No cyanosis, clubbing, or pedal edema. -There are some apparent dry ulcer on the big toe, with erythema, swelling and tenderness improving NEUROLOGICAL: Gross neurological examination did not reveal any focal deficits. SKIN: No rashes. - Labs CBC & Chem 7: 10/16/17 06:29 10/16/17 06:29 Labs: Microbiology - Last 24 Hours (Table) 10/13/17 00:11 Blood Culture - Preliminary Blood No Growth after 96 hours Assessment and Plan Plan: -Right foot big toe pain and possible infection of the bone , patient is currently on vancomycin and invanz ID consult is appreciated and the recommendation are noted. , x-ray of the right foot: Possible early OM, and venous Doppler was negative for DVT, bone scan is ordered and is consistant with right toe OM, and left foot abnormal uptake. check X-ray of the left foot, however pt does not complain from his left foot. vascular surgery consult is appreciated Continue with antibiotics and IV fluids -Complex right popliteal cyst, call surgical consult -History of CAD, continue on the Plavix and aspirin -Hypertension continue on Coreg and Lasix -Hyperlipidemia continue with statin DVT prophylaxis of Lovenox GI prophylaxis on Pepcid Prognosis is guarded
[2017-10-18 01:11] VITALS: RESP 16
[2017-10-18 01:13] LABS: Basophils # (A) 0.1 k/uL (0-0.2); Basophils % (A) 1 %; Eosinophils # (A) 0.3 k/uL (0-0.7); Eosinophils % (A) 4 %; HCT 30.5 % (39.0-53.0); HGB 9.4 gm/dL (13.0-17.5); Lymphocytes # (A) 2.8 k/uL (1.0-4.8); Lymphocytes % (A) 42 %; MCH 29.7 pg (25.0-35.0); MCV 95.9 fL (80.0-100.0); Mean Platelet Volume 6.8; Monocytes # (A) 0.5 k/uL (0-1.0); Monocytes % (A) 8 %; Neutrophils # (A) 2.9 k/uL (1.3-7.7); Neutrophils % (A) 44 %; Platelet Count 195 k/uL (150-450); RBC 3.18 m/uL (4.30-5.90); RDW 13.9 % (11.5-15.5); WBC 6.7 k/uL (3.8-10.6)
[2017-10-18 01:28] LABS: Calcium 9.1 mg/dL (8.4-10.2); Potassium 4.3 mmol/L (3.5-5.1)
[2017-10-18 07:35] LABS: Basophils % (A) 1 %; Eosinophils # (A) 0.2 k/uL (0-0.7); Eosinophils % (A) 4 %; HCT 30.5 % (39.0-53.0); HGB 9.4 gm/dL (13.0-17.5); Lymphocytes # (A) 2.5 k/uL (1.0-4.8); Lymphocytes % (A) 44 %; MCH 29.4 pg (25.0-35.0); MCHC 30.8 g/dL (31.0-37.0); MCV 95.4 fL (80.0-100.0); Mean Platelet Volume 6.8; Monocytes # (A) 0.5 k/uL (0-1.0); Monocytes % (A) 8 %; Neutrophils # (A) 2.3 k/uL (1.3-7.7); Neutrophils % (A) 41 %; Platelet Count 207 k/uL (150-450); RBC 3.19 m/uL (4.30-5.90); RDW 13.7 % (11.5-15.5); WBC 5.7 k/uL (3.8-10.6)
[2017-10-18 07:47] LABS: Potassium 4.5 mmol/L (3.5-5.1)
[2017-10-18] MEDS: CLOPIDOGREL 75 MG TAB PO SCH (08:09)
[2017-10-18] MEDS: ASPIRIN 81 MG PO SCH (08:09)
[2017-10-18] MEDS: CARVEDILOL 6.25 MG TAB PO SCH ×2 (08:09→16:50)
[2017-10-18] MEDS: THIAMINE 100 MG TAB PO SCH (08:09)
[2017-10-18] MEDS: CYANOCOBALAMIN 500 MCG TAB PO SCH (08:09)
[2017-10-18] MEDS: ATORVASTATIN 10 MG TAB PO SCH (08:09)
[2017-10-18] MEDS: FAMOTIDINE 20 MG TAB PO SCH (08:10)
[2017-10-18] MEDS: ENOXAPARIN 40 MG/0.4 ML SYRINGE SQ SCH (08:10)
[2017-10-18] MEDS: NICOTINE 14MG/24HR PATCH TRANSDERM SCH (08:10)
[2017-10-18] MEDS: METHADONE 10 MG TAB PO SCH (08:10)
[2017-10-18] MEDS: FUROSEMIDE 40 MG TAB PO SCH (08:10)
[2017-10-18] MEDS: ERTAPENEM 1 GM in SODIUM CHLORIDE 0.9% 50 ML IVPB SCH (08:12)
[2017-10-18] MEDS: MULTIVITAMINS, THERA 1 EACH TAB PO SCH (11:00)
--- NOTE | 2017-10-18 11:02 | XR ---
EXAMINATION TYPE: XR foot complete LT DATE OF EXAM: 10/18/2017 CLINICAL HISTORY: Chronic left foot pain. Abnormal bone scan TECHNIQUE: Frontal, lateral, and oblique images of the left foot are obtained. COMPARISON: Three-phase bone scan from 4 days ago FINDINGS: Marked flexion in the toes is present making evaluation at this level suboptimal. There is no acute fracture/dislocation evident in the left foot. There is joint space loss and spurring with subchondral cystic change at base of first metatarsal. This likely is at area of increased radiotrace r uptake on three-phase bone scan delayed images which is midfoot medial aspect. Mild diffuse subcuta neous edema is present. IMPRESSION: As above.
[2017-10-18 14:27] VITALS: BP 105/55; PULSE 83; TEMP 98.6
--- NOTE | 2017-10-18 16:36 | P.DS ---
Providers Date of admission: 10/12/17 23:55 Attending physician: Kolby Torres Consults: 10/13/17 22:43 Consult Physician Urgent Consulting Provider: Ross Zuniga Consult Reason/Comments: right foot OM, h/o CAD with stents Do you want consulting provider notified?: Yes, Notify in am 10/14/17 18:37 Consult Physician Routine Consulting Provider: Russel Sanchez Consult Reason/Comments: infection Do you want consulting provider notified?: Already Contacted Primary care physician: Physician Nonstaff Hospital Course: 56-year-old gentleman admitted with the right great toe ulceration and diabetic foot ulcer, patient is on Bactrim at home. Patient pain is Doppler of the right lower extremity is negative for DVT did show complex right popliteal cyst which is chronic with intervention is necessary for that. Patient won't cultures are negative. Patient is presently on vancomycin and Invanz area did patient is found to have stomatitis in the bone scan. Discussed with infectious disease the recommending levofloxacin prescriptions were provided by infectious disease and patient will be discharged today. Patient does have diabetic neuropathy. Patient will be discharged back to [place] for his drug and alcohol rehabilitation patient does have history of hepatitis C. Patient had acute renal failure on admission secondary to Lasix and Bactrim both of which will be discontinued. PHYSICAL EXAMINATION: GENERAL: The patient is alert and oriented x3, not in any acute distress. Well developed, well nourished. HEENT: Pupils are round and equally reacting to light. EOMI. No scleral icterus. No conjunctival pallor. Normocephalic, atraumatic. No pharyngeal erythema. No thyromegaly. CARDIOVASCULAR: S1 and S2 present. No murmurs, rubs, or gallops. PULMONARY: Chest is clear to auscultation, no wheezing or crackles. ABDOMEN: Soft, nontender, nondistended, normoactive bowel sounds. No palpable organomegaly. MUSCULOSKELETAL: No joint swelling or deformity. EXTREMITIES: No cyanosis, clubbing, or pedal edema. Right great toe ulceration appears to be stage III clinically evident late stage IV because of in involvement of bone. Clinically doesn't appear to be infected NEUROLOGICAL: Gross neurological examination did not reveal any focal deficits. SKIN: No rashes. Assessment and Plan Plan: -Right great toe osteomyelitis acute possible -Complex right popliteal cyst, chronic no pain and no surgical intervention is necessary at this time -History of CAD, continue on the Plavix and aspirin -Hypertension continue on Coreg, Lasix will be discussed new due to acute renal failure and prerenal azotemia -Hyperlipidemia continue with statin Patient Condition at Discharge: Fair Plan - Discharge Summary Discharge Rx Participant: Yes New Discharge Prescriptions: New Levofloxacin [Levaquin] 500 mg PO DAILY #30 tab Discontinued Furosemide [Lasix] 40 mg PO DAILY Sulfamethox-Tmp 800-160Mg [Bactrim DS 800-160 mg] 1 tab PO DAILY No Action Multivitamins, Thera [Multivitamin (formulary)] 1 tab PO DAILY Clopidogrel [Plavix] 75 mg PO DAILY Thiamine [Vitamin B-1] 100 mg PO DAILY Cyanocobalamin [Vitamin B-12] 500 mcg PO DAILY Atorvastatin [Lipitor] 10 mg PO DAILY Nitroglycerin Sl Tabs [Nitrostat] 0.4 mg SUBLINGUAL Q5M PRN #20 tab PRN Reason: Chest Pain Ranitidine HCl 300 mg PO DAILY Aspirin [Adult Low Dose Aspirin EC] 81 mg PO DAILY Albuterol Sulfate [Proair Hfa] 2 puff INHALATION RT-Q6H PRN PRN Reason: Shortness Of Breath Carvedilol [Coreg] 6.25 mg PO BID Methadone [Dolophine] 140 mg PO DAILY Discharge Medication List Multivitamins, Thera [Multivitamin (formulary)] 1 tab PO DAILY 02/05/16 [History ] Atorvastatin [Lipitor] 10 mg PO DAILY 02/19/16 [History] Clopidogrel [Plavix] 75 mg PO DAILY 02/19/16 [History] Cyanocobalamin [Vitamin B-12] 500 mcg PO DAILY 02/19/16 [History] Nitroglycerin Sl Tabs [Nitrostat] 0.4 mg SUBLINGUAL Q5M PRN #20 tab 02/19/16 [Rx ] Thiamine [Vitamin B-1] 100 mg PO DAILY 02/19/16 [History] Albuterol Sulfate [Proair Hfa] 2 puff INHALATION RT-Q6H PRN 10/12/17 [History] Aspirin [Adult Low Dose Aspirin EC] 81 mg PO DAILY 10/12/17 [History] Carvedilol [Coreg] 6.25 mg PO BID 10/12/17 [History] Ranitidine HCl 300 mg PO DAILY 10/12/17 [History] Methadone [Dolophine] 140 mg PO DAILY 10/13/17 [History] Levofloxacin [Levaquin] 500 mg PO DAILY #30 tab 10/18/17 [Rx] Follow up Appointment(s)/Referral(s): [facility], [NON-STAFF] - Nonstaff,Physician [Primary Care Provider] - 1-2 days [facility], [REFERRING] - Care Plan Goals (MU): Pt is receiving Ensure Enlive TID with meals; 350Kcal, 20gPro per serving. Please continue this regimen or provide a high protein HS snack at [facility] to improve with wound healing. Please call me with questions, Magdalene Quintanilla, RD [phone].
[2017-10-18] MEDS ORDERED: VANCOMYCIN TROUGH DUE 1 EACH MISC MISCELLANE ONE (21:00)
--- NOTE | 2017-10-21 11:45 | CDI ---
Last Revision, April 2017 Documentation Clarification Form Date: 10/21/17 From: Alba Kong Phone: If you have a question regarding this query, please contact Gayle Fonseca at [phone] between 8am and 5pm Admit Date: 10/12/2017 11:55:00 PM Patient Name: Danis Lee Visit Number: [id number] Discharge Date: 10/18/17 ATTENTION: The Clinical Documentation Specialists (CDI) and [facility] Coding Staff appreciate your assistance in clarifying documentation. Please respond to the clarification below the line at the bottom and electronically sign. The CDI & [facility] Coding staff will review the response and follow-up if needed. Please note: Queries are made part of the Legal Health Record. If you have any questions, please contact the author of this message via ITS. Dr. Marco Mcclure CHF is documented in the past medical history in the progress notes. History/Risk Factors: Hypertension, CAD, Smoker and diabetes. Treatment: Patient is on PO lasix In your professional opinion, can you please clarify the type of CHF if known? Systolic Heart Failure: Diastolic Heart Failure: Systolic & Diastolic Heart Failure: Unable to Determine Other, please specify Appropriate back documentation as per my opinion was already dictated in my note. MTDD
== END 2017-10-18 17:40 | disposition home health service (06) | DRG 638 ==
LOC: EC 22:53 → 3SUR 23:55
PROVIDERS: ADMIT Hospitalist; ATTEND Hospitalist
DX: E11.69 Type 2 diabetes mellitus with other specified complication (principal); M86.171 Other acute osteomyelitis, right ankle and foot; E44.0 Moderate protein-calorie malnutrition; L03.115 Cellulitis of right lower limb; F11.20 Opioid dependence, uncomplicated; Z68.1 Body mass index [BMI] 19.9 or less, adult; N17.9 Acute kidney failure, unspecified; E11.40 Type 2 diabetes mellitus with diabetic neuropathy, unspecified; E11.51 Type 2 diabetes mellitus with diabetic peripheral angiopathy without gangrene; E11.621 Type 2 diabetes mellitus with foot ulcer; I11.0 Hypertensive heart disease with heart failure; I50.9 Heart failure, unspecified; E78.5 Hyperlipidemia, unspecified; E86.0 Dehydration; F10.20 Alcohol dependence, uncomplicated; F17.210 Nicotine dependence, cigarettes, uncomplicated; F32.9 Major depressive disorder, single episode, unspecified; I25.10 Atherosclerotic heart disease of native coronary artery without angina pectoris; L97.512 Non-pressure chronic ulcer of other part of right foot with fat layer exposed; M71.21 Synovial cyst of popliteal space [Baker], right knee; T50.1X5A Adverse effect of loop [high-ceiling] diuretics, initial encounter; T37.0X5A Adverse effect of sulfonamides, initial encounter; Y92.009 Unspecified place in unspecified non-institutional (private) residence as the place of occurrence of the external cause; Z79.02 Long term (current) use of antithrombotics/antiplatelets; Z79.82 Long term (current) use of aspirin; Z79.899 Other long term (current) drug therapy; Z95.5 Presence of coronary angioplasty implant and graft; Z88.5 Allergy status to narcotic agent
CPT/HCPCS: 36415; 78315; 80048; 80053; 80202; 81003; 83735; 84100; 85025; 85610; 85730; 87040; 87086; 93005; 93970; 94640; 94760; 96365; 96366; 96375; 99285

== ENCOUNTER 2017-10-19 20:52 | Inpatient (IN) | payer OTHER ==
[2017-10-19] MEDS ORDERED: SODIUM CHLORIDE 0.9% 1,000 ML IV STA (22:23)
[2017-10-19 22:56] LABS: Basophils # (A) 0.1 k/uL (0-0.2); Basophils % (A) 1 %; Eosinophils # (A) 0.3 k/uL (0-0.7); Eosinophils % (A) 4 %; HCT 29.3 % (39.0-53.0); HGB 9.5 gm/dL (13.0-17.5); Lymphocytes # (A) 2.9 k/uL (1.0-4.8); Lymphocytes % (A) 33 %; MCH 30.5 pg (25.0-35.0); MCHC 32.6 g/dL (31.0-37.0); MCV 93.6 fL (80.0-100.0); Mean Platelet Volume 7.5; Monocytes # (A) 0.5 k/uL (0-1.0); Monocytes % (A) 6 %; Neutrophils # (A) 4.8 k/uL (1.3-7.7); Neutrophils % (A) 55 %; Platelet Count 227 k/uL (150-450); RBC 3.13 m/uL (4.30-5.90); RDW 13.6 % (11.5-15.5); WBC 8.8 k/uL (3.8-10.6)
--- NOTE | 2017-10-19 23:40 | XR ---
EXAMINATION TYPE: XR chest 2V DATE OF EXAM: 10/19/2017 COMPARISON: 02/19/2016 HISTORY: Swollen feet TECHNIQUE: Frontal and lateral views of the chest are obtained. FINDINGS: Heart and mediastinum are normal. Lungs are clear of consolidation. There is no heart fail ure. . There is suboptimal inspiration. There is no definite pleural effusion. IMPRESSION: Inspiration is decreased compared to last exam. No heart failure.
--- NOTE | 2017-10-19 23:55 | ED ---
Dizziness HPI - General Chief Complaint: Dizziness Stated Complaint: leg & feet swelling/low BP-revisit Time Seen by Provider: 10/19/17 22:17 Source: patient Mode of arrival: ambulatory Limitations: no limitations - History of Present Illness Initial Comments: [age]OS[age] years old male who was recently discharged from hospital presents back with the dizziness, his blood pressure was low his blood pressure at home was 70/40 and he noticed some swelling of his ankles denies any headaches no neck stiffness no chest pain no shortness of breath no pleuritic chest pain no abdominal pain no frequency urgency dysuria no symptoms of TIA or CVA - Related Data Home Medications Medication Instructions Recorded Confirmed Multivitamins, Thera [Multivitamin 1 tab PO DAILY 02/05/16 10/19/17 (formulary)] Clopidogrel [Plavix] 75 mg PO DAILY 02/19/16 10/19/17 Cyanocobalamin [Vitamin B-12] 500 mcg PO DAILY 02/19/16 10/19/17 Thiamine [Vitamin B-1] 100 mg PO DAILY 02/19/16 10/19/17 Albuterol Sulfate [Proair Hfa] 2 puff INHALATION RT-Q6H PRN 10/12/17 10/19/17 Aspirin [Adult Low Dose Aspirin EC] 81 mg PO DAILY 10/12/17 10/19/17 Carvedilol [Coreg] 6.25 mg PO BID 10/12/17 10/19/17 Ranitidine HCl 300 mg PO DAILY 10/12/17 10/19/17 Methadone [Dolophine] 140 mg PO DAILY 10/13/17 10/19/17 Atorvastatin [Lipitor] 80 mg PO DAILY 10/19/17 10/19/17 Lisinopril [Prinivil] 5 mg PO DAILY 10/19/17 10/19/17 [place]-3 Fatty Acids/Fish Oil [Fish 1 cap PO DAILY 10/19/17 10/19/17 Oil 1,000 mg Softgel] Previous Rx's Medication Instructions Recorded Nitroglycerin Sl Tabs [Nitrostat] 0.4 mg SUBLINGUAL Q5M PRN #20 tab 02/19/16 Levofloxacin [Levaquin] 500 mg PO DAILY #30 tab 10/18/17 Sulfamethox-Tmp 800-160Mg [Bactrim 1 tab PO DAILY #30 tab 10/18/17 DS 800-160 mg] Allergies Allergy/AdvReac Type Severity Reaction Status Date / Time morphine Allergy Rash/Hives Verified 10/19/17 22:52 Review of Systems ROS Statement: Those systems with pertinent positive or pertinent negative responses have been documented in the HPI. ROS Other: All systems not noted in ROS Statement are negative. Past Medical History Past Medical History: Chest Pain / Angina, Heart Failure, Hyperlipidemia, Hypertension Additional Past Medical History / Comment(s): Pancreatitis History of Any Multi-Drug Resistant Organisms: None Reported Past Surgical History: Orthopedic Surgery Additional Past Surgical History / Comment(s): 4 stents placed heart, Rt shoulder Past Anesthesia/Blood Transfusion Reactions: No Reported Reaction Past Psychological History: Depression Smoking Status: Current every day smoker Past Alcohol Use History: None Reported Past Drug Use History: Opiates - Past Family History Mother Family Medical History: No Reported History Father Additional Family Medical History / Comment(s): Heart disease and [place] General Exam - General Exam Comments Initial Comments: General: The patient is awake and alert, in no distress, and does not appear acutely ill. Skin: Skin is warm and dry and no rashes or lesions are noted. Eye: Pupils are equal, round and reactive to light, extra-ocular movements are intact; there is normal conjunctiva bilaterally. Ears, nose, mouth and throat: There are moist mucous membranes and no oral lesions. Neck: The neck is supple, there is no tenderness or JVD. Cardiovascular: There is a regular rate and rhythm. No murmur, rub or gallop is appreciated. Respiratory: To auscultation bilateral, no wheezing no rhonchi no distress respiratory juares noticed Gastrointestinal: Soft, non-distended, non-tender abdomen without masses or organomegaly noted. There is no rebound or guarding present. Bowel sounds are unremarkable. Back: There is no tenderness to palpation in the midline. There is no obvious deformity. Musculoskeletal: Normal ROM, no tenderness, There is less 1 edema bilateral, no signs of any DVT over the calf areas Neurological: CN II-XII intact, Cranial nerves III through XII are intact. There are no obvious motor or sensory deficits. Coordination appears grossly intact. Speech is normal. Psychiatric: Cooperative, appropriate mood & affect, normal judgment. Limitations: no limitations Course Vital Signs 10/19/17 21:24 Temperature 99.1 F Pulse Rate 83 Respiratory 20 Rate Blood Pressure 105/63 O2 Sat by Pulse 99 Oximetry Noticed his creatinine has gone up me was normal, considering his dizziness, hypertension, kidney insufficiency he be admitted to the hospital the nephrology consult EKG Findings - EKG Comments: EKG Findings:: EKG normal sinus rhythm ventricular rate is 74 TX interval is 134 QRS duration is 82 QT/QTc is 422/416 review of this EKG does not reveal any ST elevation or ST depression Medical Decision Making - Lab Data Result diagrams: 10/19/17 22:45 10/19/17 23:30 Lab Results 10/19/17 10/19/17 10/19/17 Range/Units 22:45 23:30 23:30 WBC 8.8 (3.8-10.6) k/uL RBC 3.13 L (4.30-5.90) m/uL Hgb 9.5 L (13.0-17.5) gm/dL Hct 29.3 L (39.0-53.0) % MCV 93.6 (80.0-100.0) fL MCH 30.5 (25.0-35.0) pg MCHC 32.6 (31.0-37.0) g/dL RDW 13.6 (11.5-15.5) % Plt Count 227 (150-450) k/uL Neutrophils % 55 % Lymphocytes % 33 % Monocytes % 6 % Eosinophils % 4 % Basophils % 1 % Neutrophils # 4.8 (1.3-7.7) k/uL Lymphocytes # 2.9 (1.0-4.8) k/uL Monocytes # 0.5 (0-1.0) k/uL Eosinophils # 0.3 (0-0.7) k/uL Basophils # 0.1 (0-0.2) k/uL Sodium 138 (137-145) mmol/L Potassium 4.7 (3.5-5.1) mmol/L Chloride 98 (98-107) mmol/L Carbon Dioxide 25 (22-30) mmol/L Anion Gap 15 mmol/L BUN 44 H (9-20) mg/dL Creatinine 2.10 H (0.66-1.25) mg/dL Est GFR (CKD-EPI)AfAm 39 (>60 ml/min/1.73 sqM) Est GFR (CKD-EPI)NonAf 34 (>60 ml/min/1.73 sqM) Glucose 82 (74-99) mg/dL Calcium 9.2 (8.4-10.2) mg/dL Total Bilirubin <0.1 L (0.2-1.3) mg/dL AST 25 (17-59) U/L ALT 28 (21-72) U/L Alkaline Phosphatase 65 (38-126) U/L Troponin I <0.012 (0.000-0.034) ng/mL Total Protein 6.8 (6.3-8.2) g/dL Albumin 3.4 L (3.5-5.0) g/dL Disposition Clinical Impression: Dizziness, Hypotension, Renal insufficiency Disposition: ADMITTED IP TO THIS [facility] Condition: Good Referrals: Nonstaff,Physician [Primary Care Provider] - 1-2 days
[2017-10-20 00:11] LABS: ALT 28 U/L (21-72); AST 25 U/L (17-59); Albumin 3.4 g/dL (3.5-5.0); Alkaline Phosphatase 65 U/L (38-126); Anion Gap 15 mmol/L; Blood Urea Nitrogen 44 mg/dL (9-20); Calcium 9.2 mg/dL (8.4-10.2); Carbon Dioxide 25 mmol/L (22-30); Chloride 98 mmol/L (98-107); Glucose 82 mg/dL (74-99); Potassium 4.7 mmol/L (3.5-5.1); Sodium 138 mmol/L (137-145); Total Bilirubin <0.1 mg/dL (0.2-1.3); Total Protein 6.8 g/dL (6.3-8.2)
[2017-10-20] MEDS ORDERED: NITROGLYCERIN SL TABS 0.4 MG TAB SUBLINGUAL PRN (12:12)
[2017-10-20] MEDS ORDERED: LEVOFLOXACIN 500 MG TAB PO SCH (13:00)
[2017-10-20] MEDS: FAMOTIDINE 20 MG TAB PO SCH (13:28)
[2017-10-20] MEDS: CYANOCOBALAMIN 500 MCG TAB PO SCH (13:29)
[2017-10-20] MEDS: ATORVASTATIN 80 MG TAB PO SCH (13:29)
[2017-10-20] MEDS: ASPIRIN 81 MG PO SCH (13:29)
[2017-10-20] MEDS: CLOPIDOGREL 75 MG TAB PO SCH (13:30)
[2017-10-20] MEDS: SULFAMETHOX-TMP 800-160MG 1 EACH TAB PO SCH (13:30)
[2017-10-20] MEDS: THIAMINE 100 MG TAB PO SCH (13:31)
[2017-10-20] MEDS: METHADONE 10 MG TAB PO SCH (13:31)
[2017-10-20 13:57] VITALS: BMI 20.2
[2017-10-20 15:11] VITALS: RESP 16
[2017-10-20] MEDS ORDERED: ACETAMINOPHEN TAB 325 MG TAB PO PRN (15:42)
[2017-10-20] MEDS: ALBUTEROL NEBULIZED 2.5 MG/3 ML INHALATION PRN (16:30)
[2017-10-20] MEDS: CARVEDILOL 6.25 MG TAB PO SCH (16:50)
--- NOTE | 2017-10-20 17:59 | HP ---
HISTORY AND PHYSICAL DATE OF ADMISSION: 10/20/17. CHIEF COMPLAINT: Chest pain. HISTORY OF PRESENT ILLNESS: This is apparently is another admission for this 56-year-old white male from [place] being treated for chronic alcoholism, came emergency room because of chest pain and continued difficulty with the right 1st toe for which he was in the hospital a week or so ago. Also in the emergency room, his blood pressure was extremely low and this was thought to be due to his medications. He has been being treated for hypertension and congestive heart failure. REVIEW OF SYSTEMS: He has had no CVAs, change in vision or hearing, cough, hemoptysis, chest pain, orthopnea, PND, murmurs, rheumatic fever, etc. He does have coronary artery disease and has had stents placed in the past. He has had no abdominal pain, vomiting, hematemesis, melena, hematochezia, jaundice, hematuria, frequency, urgency, etc. BUN, creatinine are elevated. He is not diabetic. The remainder of the review of systems is unremarkable except for his alcoholism. He has surgically had his coronary artery stents placed. HE IS ALLERGIC TO MORPHINE. Medications that he is on there can be found in the medical section of his admitting summary. He smokes a pack of cigarettes a day. LABORATORY DATA: Laboratory studies reveal BUN 44, creatinine 2.1. His hemoglobin is 9.5. PHYSICAL EXAMINATION: Blood pressure 77/32 with a pulse of 60, respirations of 36 and he is afebrile. In general, appeared to be in no acute distress. Skin is dry and lymph nodes not enlarged. Head, ears, eyes, nose, mouth, and throat were normal. Neck veins not distended. Thyroid enlarged. Chest is clear. Cardiac exam is normal. The abdomen is soft, nontender. Extremities are normal. IMPRESSION: 1. Hypotension. 2. History of congestive heart failure. 3. History of hypertension. 4. Coronary artery disease. 5. Probable prerenal azotemia. PLAN: 1. Bed rest. 2. IV fluids. 3. Monitor blood pressure. 4. Follow renal function. 5. Assess anemia, if indicated. MMODL / IJN: [id number] /
[2017-10-21 06:18] VITALS: BP 137/80; TEMP 98.6
[2017-10-21] MEDS: CLOPIDOGREL 75 MG TAB PO SCH (07:36)
[2017-10-21] MEDS: CARVEDILOL 6.25 MG TAB PO SCH (07:36)
[2017-10-21] MEDS: ASPIRIN 81 MG PO SCH (07:36)
[2017-10-21] MEDS: FAMOTIDINE 20 MG TAB PO SCH (07:36)
[2017-10-21] MEDS: ATORVASTATIN 80 MG TAB PO SCH (07:36)
[2017-10-21] MEDS: SULFAMETHOX-TMP 800-160MG 1 EACH TAB PO SCH (07:37)
[2017-10-21] MEDS: METHADONE 10 MG TAB PO SCH (07:44)
[2017-10-21] MEDS ORDERED: SULFAMETHOX-TMP 800-160MG 1 EACH TAB PO SCH (09:00)
[2017-10-21] MEDS ORDERED: METHADONE 10 MG TAB PO SCH (09:00)
[2017-10-21] MEDS ORDERED: LEVOFLOXACIN 500 MG TAB PO SCH (09:00)
[2017-10-21] MEDS ORDERED: FAMOTIDINE 20 MG TAB PO SCH (09:00)
[2017-10-21] MEDS ORDERED: ASPIRIN 81 MG PO SCH (09:00)
[2017-10-21] MEDS ORDERED: LEVOFLOXACIN 250 MG TAB PO SCH (09:00)
[2017-10-21] MEDS ORDERED: CLOPIDOGREL 75 MG TAB PO SCH (09:00)
[2017-10-21] MEDS ORDERED: ATORVASTATIN 80 MG TAB PO SCH (09:00)
[2017-10-21] MEDS: ALBUTEROL NEBULIZED 2.5 MG/3 ML INHALATION PRN (09:45)
--- NOTE | 2017-10-21 09:48 | P.NPCON ---
History of Present Illness - Reason for Consult acute renal failure - History of Present Illness Reason for consultation: Acute kidney injury History of present illness: Patient is a 56-year-old male seen in renal consultation for acute kidney injury. Patient appears to have chronic kidney disease stage III with baseline creatinine in the range of 1.1-1.3. Creatinine was elevated at 2.1 on the day of admission on 10/19/2017. Patient presented to the hospital due to hypotension. Patient states his blood pressure was in the systolic 60s to 70s. Patient was recently admitted for ulceration in his right foot which was treated with antibiotics. Patient was discharged on Bactrim which she has been taking. He denies regular use of NSAIDs. He last took Aleve 2 days ago. Denies vomiting or diarrhea. Admits to good urine output. No hematuria or dysuria. Patient states his sister has 1 nonfunctioning kidney but the other kidney is working fine. He denies any other family history of renal disease. His blood pressure this morning was 137/80. His dizziness has resolved. He did sustain 1 fall prior to admission but again is feeling better today. Oral intake is good. Lisinopril is currently held. He is maintained on Coreg. I don't see any diuretics and his home medications. Vital signs are stable. General: The patient appeared well nourished and normally developed. HEENT: Head exam is unremarkable. Neck is without jugular venous distension. LUNGS: Lungs are clear to auscultation and percussion. Breath sounds decreased. HEART: Rate and Rhythm are regular. First and second heart sounds normal. No murmurs, rubs or gallops. ABDOMEN: Abdominal exam reveals normal bowel sounds. Non-tender and non- distended. No evidence of peritonitis. EXTREMITITES: No clubbing, cyanosis, or edema. Past Medical History Past Medical History: Coronary Artery Disease (CAD), Chest Pain / Angina, Heart Failure, GERD/Reflux, Hyperlipidemia, Hypertension, Myocardial Infarction (NE), Vascular Disorder Additional Past Medical History / Comment(s): Pt recently admitted to [facility] on with R leg edema/R great toe pain/wound with discharge. Other hx: R great toe ulcer for several months which pt states began after stepping on a nail, MIs with last one a few months ago per pt and states he wore a life vest for 6 weeks/treated at [facility], PVD, bilateral feet neuropathy, ETOH abuse/chronic pancreatitis, drug addiction-pt currently in [place] [facility]. Last Myocardial Infarction Date:: 2017 History of Any Multi-Drug Resistant Organisms: None Reported Past Surgical History: Heart Catheterization, Heart Catheterization With Stent, Orthopedic Surgery, Tonsillectomy Additional Past Surgical History / Comment(s): PCI with 3 stents-pt cannot recall date last stent placed (stent cards copied and placed on chart-no date on them), last cardiac cath about 3 months ago at [facility], colonoscopy, R shoulder surgery-RCR. Past Anesthesia/Blood Transfusion Reactions: No Reported Reaction Date of Last Stent Placement:: unkn Smoking Status: Current every day smoker - Past Family History Mother Family Medical History: No Reported History Additional Family Medical History / Comment(s): Mother is 86yrs old and healthy. She still works, cleaning homes. Father Family Medical History: Pulmonary Embolus Additional Family Medical History / Comment(s): Heart disease and leukemia. Father is . Medications and Allergies Home Medications Medication Instructions Recorded Confirmed Type Multivitamins, Thera [Multivitamin 1 tab PO DAILY 02/05/16 10/19/17 History (formulary)] Clopidogrel [Plavix] 75 mg PO DAILY 02/19/16 10/19/17 History Cyanocobalamin [Vitamin B-12] 500 mcg PO DAILY 02/19/16 10/19/17 History Nitroglycerin Sl Tabs [Nitrostat] 0.4 mg SUBLINGUAL Q5M PRN #20 tab 02/19/16 Rx Thiamine [Vitamin B-1] 100 mg PO DAILY 02/19/16 10/19/17 History Albuterol Sulfate [Proair Hfa] 2 puff INHALATION RT-Q6H PRN 10/12/17 10/19/17 History Aspirin [Adult Low Dose Aspirin EC] 81 mg PO DAILY 10/12/17 10/19/17 History Carvedilol [Coreg] 6.25 mg PO BID 10/12/17 10/19/17 History Ranitidine HCl 300 mg PO DAILY 10/12/17 10/19/17 History Methadone [Dolophine] 140 mg PO DAILY 10/13/17 10/19/17 History Levofloxacin [Levaquin] 500 mg PO DAILY #30 tab 10/18/17 10/19/17 Rx Sulfamethox-Tmp 800-160Mg [Bactrim 1 tab PO DAILY #30 tab 10/18/17 10/19/17 Rx DS 800-160 mg] Atorvastatin [Lipitor] 80 mg PO DAILY 10/19/17 10/19/17 History Lisinopril [Prinivil] 5 mg PO DAILY 10/19/17 10/19/17 History [place]-3 Fatty Acids/Fish Oil [Fish 1 cap PO DAILY 10/19/17 10/19/17 History Oil 1,000 mg Softgel] Allergies Allergy/AdvReac Type Severity Reaction Status Date / Time morphine Allergy Rash/Hives Verified 10/19/17 22:52 Physical Exam Vitals: Vital Signs Temp Pulse Pulse Resp BP Pulse Ox 10/21/17 06:18 98.6 F 72 16 137/80 97 10/20/17 23:00 98.8 F 81 16 115/69 95 10/20/17 16:42 80 10/20/17 16:33 80 10/20/17 14:00 98.6 F 74 16 107/69 97 Intake and Output 10/20/17 10/21/17 10/21/17 22:59 06:59 14:59 Intake Total 600 Output Total 775 Balance 600 -775 Intake: Oral 600 Output: Urine 775 Other: # Voids 1 Results - Lab Results Most recent lab results Calcium 9.2 mg/dL (8.4-10.2) 10/19/17 23:30 10/19/17 22:45 10/19/17 23:30 Assessment and Plan Plan: Assessment: 1. Nonoliguric acute kidney injury mostly prerenal secondary to hypotension. Bactrim can also falsely increase creatinine by impairing its secretion. Creatinine was 2.1 on admission. No labs since. 2. Chronic kidney disease stage III with baseline creatinine in the range of 1.1-1.3. Etiology is nephrosclerosis. His UA from last week was completely benign. 3. Dizziness, due to hypotension related to antihypertensives. Seems to have resolved. 4. Anemia. Rule out iron deficiency. 5. Right foot ulcer maintained on antibiotics. Plan: Encouraged oral intake. Continue to hold lisinopril. Will decrease dose of Coreg if systolic blood pressure remains persistently less than 120. Check iron studies. Follow-up morning labs - if no significant improvement in his renal function, will need to consider alternate to Bactrim. Thank you for the consultation. I will continue to follow the patient with you during his hospital stay.
[2017-10-21 09:59] VITALS: PULSE 80
[2017-10-21 10:05] LABS: Calcium 9.4 mg/dL (8.4-10.2)
[2017-10-21] MEDS ORDERED: THIAMINE 100 MG TAB PO SCH (12:00)
[2017-10-21] MEDS ORDERED: CYANOCOBALAMIN 500 MCG TAB PO SCH (12:00)
[2017-10-21] MEDS: CYANOCOBALAMIN 500 MCG TAB PO SCH (12:41)
[2017-10-21] MEDS: THIAMINE 100 MG TAB PO SCH (12:41)
[2017-10-21 16:55] LABS: Iron Saturation 21.45 (15.00-50.00)
--- NOTE | 2017-10-21 18:03 | DS ---
DISCHARGE SUMMARY CHIEF COMPLAINT: Hypotension and dehydration. HISTORY OF PRESENT ILLNESS AND PHYSICAL EXAMINATION: Details of this man's history and physical can be found in the initial workup. LABORATORY STUDIES: While he was in the hospital he had laboratory studies, details of which can be found in the laboratory section of his chart. COURSE IN THE HOSPITAL: After admission he was placed on bedrest and started on intravenous fluids and rehydrated. Blood pressure came back up and he did well. He was stable and it was felt that he could go home on October 21. He may be going back to [place]. FINAL DIAGNOSES: 1. Hypotension. 2. Dehydration. 3. Congestive heart failure. 4. Renal failure. OPERATIONS: None. CONSULTATIONS: None. He is improved. MMODL / IJN: [id number] /
== END 2017-10-21 14:54 | disposition home health service (06) | DRG 312 ==
LOC: EC 20:52 → 4MS4W 10-20 00:02 → EC 10-20 04:20
PROVIDERS: ADMIT Family Medicine; ATTEND Family Medicine
DX: I95.2 Hypotension due to drugs (principal); I13.0 Hypertensive heart and chronic kidney disease with heart failure and stage 1 through stage 4 chronic kidney disease, or unspecified chronic kidney disease; N17.9 Acute kidney failure, unspecified; F19.20 Other psychoactive substance dependence, uncomplicated; K86.1 Other chronic pancreatitis; I50.9 Heart failure, unspecified; N18.3 Chronic kidney disease, stage 3 (moderate); G62.9 Polyneuropathy, unspecified; L97.519 Non-pressure chronic ulcer of other part of right foot with unspecified severity; T46.5X5A Adverse effect of other antihypertensive drugs, initial encounter; E86.0 Dehydration; F10.20 Alcohol dependence, uncomplicated; E78.5 Hyperlipidemia, unspecified; I25.10 Atherosclerotic heart disease of native coronary artery without angina pectoris; I25.2 Old myocardial infarction; I73.9 Peripheral vascular disease, unspecified; K21.9 Gastro-esophageal reflux disease without esophagitis; D64.9 Anemia, unspecified; F17.210 Nicotine dependence, cigarettes, uncomplicated; Z71.6 Tobacco abuse counseling; Z79.82 Long term (current) use of aspirin; Z79.02 Long term (current) use of antithrombotics/antiplatelets; Z79.899 Other long term (current) drug therapy; Z95.5 Presence of coronary angioplasty implant and graft; Z86.59 Personal history of other mental and behavioral disorders; Z87.19 Personal history of other diseases of the digestive system; Z88.5 Allergy status to narcotic agent; Z80.6 Family history of leukemia; Z82.49 Family history of ischemic heart disease and other diseases of the circulatory system
CPT/HCPCS: 36415; 71046; 80048; 80053; 82728; 83540; 83550; 84484; 85025; 93005; 94640; 94760; 99285